=== PATIENT | male | born 1955 | race Caucasian/White ===

== ENCOUNTER → 2024-03-01 19:10 | Outpatient (REF) | payer BC, SELFPAY | LOC: RAD 19:10 | PROVIDERS: ATTENDING PHYSICIAN Radiology Diagnostic Radiology; FAMILY PHYSICIAN Registered Nurse | DX: Z04.3 Encounter for examination and observation following other accident (principal); W01.0XXA Fall on same level from slipping, tripping and stumbling without subsequent striking against object, initial encounter; M19.011 Primary osteoarthritis, right shoulder | CPT/HCPCS: 73030 ==

== ENCOUNTER → 2024-04-23 15:48 | Outpatient (REF) | payer BC, SELFPAY | LOC: PAVMRI 15:48 | PROVIDERS: ATTENDING PHYSICIAN Specialist; FAMILY PHYSICIAN Registered Nurse | DX: M25.511 Pain in right shoulder (principal); R29.898 Other symptoms and signs involving the musculoskeletal system | CPT/HCPCS: 73221 ==

== ENCOUNTER 2024-07-04 08:41 | Outpatient (RCR) | payer BC, SELFPAY | END 2024-07-04 23:59 | disposition home or self-care (01) | LOC: RPT 08:41 | PROVIDERS: ATTENDING PHYSICIAN Specialist; FAMILY PHYSICIAN Registered Nurse | DX: S46.011D Strain of muscle(s) and tendon(s) of the rotator cuff of right shoulder, subsequent encounter (principal); R29.898 Other symptoms and signs involving the musculoskeletal system; Z73.6 Limitation of activities due to disability | CPT/HCPCS: 97010; 97110; 97112; 97140; 97161 ==

== ENCOUNTER 2024-08-02 09:58 | Outpatient (RCR) | payer BC, SELFPAY | END 2024-08-02 23:59 | disposition home or self-care (01) | LOC: RPT 09:58 | PROVIDERS: ATTENDING PHYSICIAN Specialist; FAMILY PHYSICIAN Registered Nurse | DX: S46.011D Strain of muscle(s) and tendon(s) of the rotator cuff of right shoulder, subsequent encounter (principal); R29.898 Other symptoms and signs involving the musculoskeletal system; Z73.6 Limitation of activities due to disability; M62.81 Muscle weakness (generalized) | CPT/HCPCS: 97010; 97110; 97112; 97140 ==

== ENCOUNTER 2024-09-02 11:07 | Outpatient (RCR) | payer BC, SELFPAY | END 2024-09-02 23:59 | disposition home or self-care (01) | LOC: RPT 11:07 | PROVIDERS: ATTENDING PHYSICIAN Specialist; FAMILY PHYSICIAN Registered Nurse | DX: S46.011D Strain of muscle(s) and tendon(s) of the rotator cuff of right shoulder, subsequent encounter (principal); R29.898 Other symptoms and signs involving the musculoskeletal system; Z73.6 Limitation of activities due to disability; M62.81 Muscle weakness (generalized) | CPT/HCPCS: 97010; 97110; 97112; 97140 ==

== ENCOUNTER 2024-10-04 09:01 | Outpatient (RCR) | payer MEDICARE, OTHER, SELFPAY | END 2024-10-04 12:56 | disposition home or self-care (01) | LOC: RPT 09:01 | PROVIDERS: ATTENDING PHYSICIAN Specialist; FAMILY PHYSICIAN Registered Nurse | DX: S46.011D Strain of muscle(s) and tendon(s) of the rotator cuff of right shoulder, subsequent encounter (principal); R29.898 Other symptoms and signs involving the musculoskeletal system; Z73.6 Limitation of activities due to disability; M25.411 Effusion, right shoulder; M62.81 Muscle weakness (generalized) | CPT/HCPCS: 97110; 97112; 97140; 97161 ==

== ENCOUNTER 2024-11-01 06:35 | Day surgery (SDC) | payer MEDICARE, OTHER, SELFPAY | END 2024-11-01 14:45 | disposition home or self-care (01) | LOC: GI 06:35 | PROVIDERS: ATTENDING PHYSICIAN Student in an Organized Health Care Education/Training Program | DX: Z12.11 Encounter for screening for malignant neoplasm of colon (principal); K57.30 Diverticulosis of large intestine without perforation or abscess without bleeding; D12.0 Benign neoplasm of cecum; D12.2 Benign neoplasm of ascending colon; K63.5 Polyp of colon | CPT/HCPCS: 45380; 88305 ==

== ENCOUNTER → 2025-04-01 11:10 | Outpatient (REF) | payer MEDICARE, OTHER, SELFPAY ==
[2025-04-01 12:24] LABS: Hematocrit 41.5 % (39.0-52.0); Hemoglobin 14.6 g/dL (13.0-18.0); Mean Corp Hgb Conc. 35.2 g/dL (33.0-37.0); Mean Corpuscular Volume 94.1 fL (80.0-94.0); Nucleated Red Blood Cells % 0 % (-); Platelet Count 169 10^3/uL (130-400); Red Cell Dist. Width 12.6 % (11.5-14.5)
[2025-04-01 12:51] LABS: ALT (SGPT) 28 U/L (0-50); AST (SGOT) 28 U/L (17-59); Albumin 4.1 g/dl (3.5-5.0); Alkaline Phosphatase 71 U/L (38-126); Blood Urea Nitrogen 19 mg/dl (9-20); Calcium 9.3 mg/dl (8.4-10.2); Carbon Dioxide 25 mmol/L (22-30); Chloride 108 mmol/L (98-107); Glucose 99 mg/dl (70-99); HDL Cholesterol 43 mg/dl; LDL Cholesterol, Calculated 120 mg/dl; Potassium 4.7 mmol/L (3.5-5.1); Sodium 138 mmol/L (135-145); Total Protein 7.2 g/dl (6.3-8.2); Very Low Density Lipoprotein 14 mg/dl (0-30); eGFR > 60.00
[2025-04-01 13:20] LABS: PSA, Total - Screen 0.66 ng/ml (0.0-4.0)
[2025-04-01 14:31] LABS: Glycohemoglobin (HgbA1c) 6.0 % (4.0-5.6)
[2025-04-03 15:06] LABS: Lyme Antibody Screen, EIA Negative (Negative)
== END ==
LOC: REG 11:10
PROVIDERS: ATTENDING PHYSICIAN Registered Nurse
DX: Z12.5 Encounter for screening for malignant neoplasm of prostate (principal); E78.2 Mixed hyperlipidemia; R73.01 Impaired fasting glucose; W57.XXXA Bitten or stung by nonvenomous insect and other nonvenomous arthropods, initial encounter
CPT/HCPCS: 36415; 80053; 80061; 83036; 84443; 85025; 86618; G0103

== ENCOUNTER 2025-08-28 14:47 | Emergency (ER) | payer MEDICARE, OTHER, SELFPAY ==
[2025-08-28 14:52] VITALS: BP 135/83
[2025-08-28] MEDS: AUGMENTIN 875 MG/125 MG 1 TABLET PO (16:37)
[2025-08-28] MEDS: TORADOL 15 MG IM (16:37)
--- NOTE | 2025-08-28 16:42 | ED.GENMED ---
History of Present Illness
General
Chief Complaint: Ear Problem
Time Seen by Provider: 08/28/25 16:17
History of Present Illness
History of Present Illness:
Patient is a 69-year-old man presenting to the emergency department for ear pain. Patient states that 3 days ago he developed right-sided ear pain as well as difficulty hearing. No traumatic events. No fevers or chills. His is a nurse
practitioner. She started him on Debrox to help soften the earwax. She also started him on amoxicillin Aleve gabapentin and Tylenol given the ear pain and sensitivity that he is having. No rash. No vision changes. No vertigo.
Past History
Past History
ED Past Medical History: None
ED Past Surgical History: Orthopedic
Patient has exhibited threatening behavior?: No
PSI?: No
Social History
Tobacco: Non-smoker
Personal:
Living: with family
Employment: Employed
Phy Exam
Physical Exam
Physical Exam:
GENERAL: in no acute distress
HEENT: Right ear with tenderness with manipulation, erythematous ear canal with soften earwax, difficult to visualize TM. No tenderness over the mastoid. Left TM with middle ear effusion. Normocephalic, extraocular movements intact, moist oral
mucosa
NECK: normal inspection
RESPIRATORY: no respiratory distress
CARDIOVASCULAR: regular rate and rhythm
EXTREMITIES: non-tender, no edema/swelling
NEUROLOGIC: awake and alert, moves all extremities
SKIN: warm
Course
Orders/Labs/Results
Orders:
Orders
08/28/25 16:29
Amoxicillin 875 mg/Clav 125 mg [Augmentin 875 mg/125 mg] 1 tablet PO NOW STA
Ketorolac [Toradol] 15 mg IM NOW STA
Vital Signs
Initial and Last Documented VS:
Initial Vital Signs
Temp Pulse Resp BP Pulse Ox
97.7 F 65 18 135/83 97
08/28/25 14:52 08/28/25 14:52 08/28/25 14:52 08/28/25 14:52 08/28/25 14:52
Last Documented Vital Signs
Temp Pulse Resp BP Pulse Ox
97.7 F 65 18 135/83 97
08/28/25 14:52 08/28/25 14:52 08/28/25 14:52 08/28/25 14:52 08/28/25 14:52
MDM/Problems Addressed
Differential Diagnosis Includes:
Patient is a 6-year-old man presenting to the emergency room with right-sided ear pain for the past 3 days. On arrival vitals are unremarkable and exam does show tenderness to manipulation to the ear as well as significant amount of earwax in the
right ear as well as a middle ear effusion. Concern for otitis externa complicated by otitis media with effusion. History exam not consistent with mastoiditis or shingles. Patient is overall well-appearing. After shared decision making we will
start Ciprodex as well as switch the amoxicillin to Augmentin. Will give first dose here. Will have patient follow-up with ENT if symptoms persist. Strict return precautions given.
*Pulse Oximetry
SaO2: 97
Oxygen Mode of Delivery: Room air
Patient hypoxic: no
*Critical Care Note
Total Time (30-74mins, 75-104mins- exclusive of procedures): Not Applicable
ED Attending Note
-
Portions of this chart may have been created with voice recognition software.� Occasional wrong word or��sound alike� substitutions may have occurred due to the inherent limitations of voice recognition software.
Discharge Plan
Departure
Patient Disposition: Home (Routine Discharge)
Date of Disposition: 08/28/25
Time of Disposition: 16:39
Patient with high blood pressure during this ER visit?: No
Discharge Problem:
Otitis externa, Acute otitis media with effusion of both ears
Instructions: Outer Ear Infection (DC), Serous Otitis Media (DC)
Prescriptions:
New
ciprofloxacin-dexamethasone 0.3-0.1 % drops,suspension
4 drp otic (ear) BID 7 Days Qty: 7.5 0RF
amoxicillin-pot clavulanate 875-125 mg tablet
1 tab PO BID Qty: 14 0RF
No Action
oxycodone-acetaminophen 5 MG/325 MG tablet
1 tab PO Q4HPRN PRN (Reason: severe pain) Qty: 10 0RF
clindamycin HCl 300 MG capsule
300 mg PO QID Qty: 20 0RF
Activity Restrictions/Additional Instructions:
Thank You for choosing [facility].
It was a pleasure meeting you and taking part in your care.
You were seen in the Emergency Department today for concerns for an ear infection. We prescribed you oral antibiotics as well as topical antibiotics. Please follow-up with ENT if symptoms persist.
If you experience fever, worsening of your symptoms, or develop any other new or concerning symptoms, please return to the Emergency Department immediately.
Please see the attached sheet for additional information.
Interventions
Interventions:
*Risk Screen - Suicide (C-SSRS) Last Done: 08/28/25 14:48
Discharge Date and Time
Print Language: [place]
[2025-08-28 16:57] VITALS: BP 138/84
== END 2025-08-28 16:58 | disposition home or self-care (01) ==
LOC: EMR 14:47
PROVIDERS: EMERGENCY PHYSICIAN Student in an Organized Health Care Education/Training Program; FAMILY PHYSICIAN Registered Nurse
DX: H60.93 Unspecified otitis externa, bilateral (principal); H65.193 Other acute nonsuppurative otitis media, bilateral
CPT/HCPCS: 96372; 99284